=== PATIENT | female | born 1970 | race Caucasian/White ===

== ENCOUNTER 2018-12-21 07:20 | Day surgery (SDC) | payer MEDICAID ==
[2018-12-21] VITALS (12 sets, daily range): BP systolic 122–149; BP diastolic 68–86; PULSE 74–100; RESP 16–30; Ht 158.8 cm; Wt 69.8 kg
[~2018-12-21] VITALS: Ht 158.8 cm; Wt 69.8 kg
[~2018-12-21 07:20] MED LIST: CEFAZOLIN 1 GM/50 ML (PMX) 50 ML IVPB SCH; SOD CHLORIDE 0.9% 1,000 ML IV SCH
[2018-12-21] MEDS ORDERED: ACETAMINOPHEN 500 MG TAB PO ONE (08:30)
[2018-12-21] MEDS ORDERED: PROPOFOL 40 ML ONE (10:23)
[2018-12-21] MEDS ORDERED: FAMOTIDINE 20 MG INJ ONE (10:23)
[2018-12-21] MEDS ORDERED: MIDAZOLAM 1 MG/ML 2 ML INJ ONE (10:23)
[2018-12-21] MEDS ORDERED: CEFAZOLIN 1 GM INJ ONE (10:23)
[2018-12-21] MEDS ORDERED: DESFLURANE 15 MIN ONE (10:23)
[2018-12-21] MEDS ORDERED: ONDANSETRON 4 MG INJ ONE (10:24)
[2018-12-21] MEDS ORDERED: LIDOCAINE 2% (SDV) 5 ML INJ ONE (10:24)
[2018-12-21] MEDS ORDERED: FENTAnyl 50 MCG/ML VIAL ONE (10:24)
[2018-12-21] MEDS ORDERED: ISOSULFAN BLUE 1% 5 ML INJ SC ONE (10:40)
[2018-12-21] MEDS ORDERED: KETOROLAC 15 MG INJ IV PRN (11:30)
[2018-12-21] MEDS ORDERED: EPHEDrine 25 MG/5 ML SYG IV PRN (11:30)
[2018-12-21] MEDS ORDERED: ALBUTEROL 0.083% (NEB) 2.5 MG/3 ML AMP HHN PRN (11:30)
[2018-12-21] MEDS ORDERED: HYDROmorphONE 1 MG/5 ML IV SYRINGE IV PRN ×3 (11:30)
[2018-12-21] MEDS ORDERED: OXYCODONE/ACETAMINOPHEN (5/325) TAB PO PRN ×2 (11:30)
[2018-12-21] MEDS ORDERED: morphine 2 MG INJ IV PRN ×2 (11:30)
[2018-12-21] MEDS ORDERED: ONDANSETRON 4 MG INJ IV PRN (11:30)
[2018-12-21] MEDS ORDERED: FENTAnyl 50 MCG/ML VIAL IV PRN ×2 (11:30)
[2018-12-21] MEDS ORDERED: LABETALOL HCL 20MG INJ IV PRN (11:30)
[2018-12-21] MEDS ORDERED: DIPHENHYDRAMINE 50 MG INJ IV PRN (11:30)
[2018-12-21] MEDS ORDERED: hydrALAzine 20 MG INJ IV PRN (11:30)
[2018-12-21] MEDS ORDERED: ATROPINE 1 MG/10 ML SYRINGE IV PRN (11:30)
[2018-12-21] MEDS ORDERED: LEVALBUTEROL (NEB) 0.63 MG/3 ML AMP HHN PRN (11:30)
[2018-12-21] MEDS ORDERED: METOCLOPRAMIDE 10 MG INJ ONE (11:31)
[2018-12-21] MEDS ORDERED: PHENYLephrine (100 MCG/ML) 10ML SYG ONE (11:44)
[2018-12-21] MEDS ORDERED: HYDROCODONE/APAP (7.5/325) TAB PO PRN (12:30)
== END 2018-12-21 14:43 | disposition home or self-care (01) ==
LOC: SDS 07:20 → EDSTATUS 09:30 → SDS 14:43
PROVIDERS: ATTEND Surgery Surgical Oncology
DX: D05.12 Intraductal carcinoma in situ of left breast (principal)
CPT/HCPCS: 19301; 84703; 88307; J0690; J2250; J2405; J2765; J3010; Z7512; Z7610; J2370; Q9968